=== PATIENT | female | born 1960 | race Caucasian/White ===

== ENCOUNTER 2022-01-15 06:26 | Day surgery (SDC) | payer BC ==
[~2022-01-15] VITALS: Ht 172.7 cm; Wt 68.6 kg
[2022-01-15 06:40] VITALS: BP 115/73
[2022-01-15] MEDS ORDERED: ESTR42.53 VG (07:23)
[2022-01-15] MEDS ORDERED: MIDAZolam 1 MG/ML 5ML VIAL ONE (07:34)
[2022-01-15] MEDS ORDERED: fentaNYL/PF 50MCG/1 ML 2ML syringe ONE (07:34)
[2022-01-15 09:05] VITALS: BP 124/71
[2022-01-15 09:15] VITALS: BP 111/71
[2022-01-15 09:25] VITALS: BP 129/66
[2022-01-15 09:35] VITALS: BP 105/69
== END 2022-01-15 09:53 | disposition home or self-care (01) ==
LOC: GI LAB 06:26
PROVIDERS: ATTEND Internal Medicine Gastroenterology
DX: K64.1 Second degree hemorrhoids (principal)
CPT/HCPCS: 45378; 99152; J2250; J3010; J7030; Z7512; 99153; A4620